=== PATIENT | female | born 1940 | race Caucasian/White ===

== ENCOUNTER 2021-12-21 19:35 | Inpatient (IN) | payer MEDICARE, SELFPAY ==
[2021-12-21 19:45] VITALS: BP 157/56; PULSE 86; RESP 18; TEMP 37.1; O2SAT 94
--- NOTE | 2021-12-21 19:50 | PC.NURSE ---
Notified PCP that pt had arrived to floor and no current orders on pt at this time. PCP to enter orders.
[2021-12-21 20:14] VITALS: BMI 23.6
--- NOTE | 2021-12-21 20:25 | PC.NURSE ---
Covid swab obtained and sent to lab, protocol order entered.
[2021-12-21 20:49] LABS: Influenza A, PCR Not Detected (NotDetected); Influenza B, PCR Not Detected (NotDetected)
[2021-12-21 21:11] LABS: Coronavirus 19, PCR Detected (NotDetected)
[2021-12-21 22:00] VITALS: O2SAT 88
[2021-12-21 22:10] VITALS: O2SAT 93
[2021-12-21 23:32] VITALS: O2SAT 94
--- NOTE | 2021-12-21 23:37 | PC.NURSE ---
Notified PCP that was on floor and no orders have been entered at this time. . PCP to enter orders.
[2021-12-21 23:53] VITALS: BP 137/61; PULSE 62; RESP 16; TEMP 36.6; O2SAT 96
[2021-12-22] VITALS: PULSE 60
--- NOTE | 2021-12-22 00:26 | CA_ITS ---
APPROVED REPORT EXAM: Comprehensive 2D, Doppler, and color-flow Echocardiogram [employer]: Francesca Aparicio CRT Ht: 4 ft 11 in Wt: 117lbs BSA: 1.47 BP: 110/70 mmHg Indications: Covid +, Chest Pain, Non STEMI, Hyperlipidemia, Hypertension/HDD 2D Dimensions LVOT 1.77 cm (M/F) 1.5-2.5 LA Volume 30.00 mL LA Volume Index 20.40 mL/m2 (M/F) 16-34 M-Mode Dimensions RVDd 3.13 cm (0.9-2.6) LA Diam 3.92 cm (1.9-4.0) LVDd 4.25 cm (3.5-5.7) Ao Diam 3.35 cm (2.0-3.7) LVDs 2.53 cm (3.5-5.7) IVSd 1.08 cm (0.6-1.1) PWd 0.63 cm (0.6-1.1) EF (Teich) 71.50% FS 40.50% EDV (Teich) 80.80 mL TAPSE 1.72 (<1.7) ESV (Teich) 23.00 mL LV Diastology MED E' 7.50 (< 7 cm/sec) MED A' 8.40 cm/s LAT E' 11.40 (<10 cm/sec) LAT A' 12.60 cm/s Aortic Valve AO Peak GR. 7.60 mmHg Pulmonary Valve PV Peak Velocity 122.00 (50-150 cm/s) Tricuspid Valve TR P. Velocity 366.00 cm/s RAP Estimate 10.00 mmHg RVSP 63.40 mmHg Left Ventricle Left atrium is mildly enlarged, left ventricle is normal size, estimated ejection fraction 55% with no regional wall motion abnormality, diastolic parameters are inconclusive. Right Ventricle Right atrium and right ventricle are mildly enlarged with normal contractility. Aortic Valve Aortic valve is minimally thickened and fibrosed there is no aortic stenosis or aortic insufficiency. Mitral Valve Mitral valve leaflets are minimally thickened, there is mild mitral regurgitation. Tricuspid Valve Tricuspid valve leaflets are minimally thickened, there is moderate tricuspid regurgitation, calculated right ventricular systolic pressure is 55 mmHg. Pulmonic Valve Pulmonic valve is poorly visualized. Great Vessels Aortic root is normal size. Inferior vena cava is poorly visualized. Pericardium No significant pericardial effusion noted. Conclusion 1. Biatrial enlargement, normal left ventricular size, estimated ejection fraction 55% with no regional wall motion abnormality, diastolic parameters are inconclusive. 2. Mildly enlarged right ventricle with normal contractility. 3. Mild mitral and moderate tricuspid regurgitation, calculated right ventricular systolic pressure is 55 mmHg. 4. No significant pericardial effusion noted. 5. Inferior vena cava is poorly visualized. Electronically signed by : Guanakito Pulliam MD 12/22/2021 10:11:20
[2021-12-22 03:35] VITALS: BP 132/66; PULSE 73; RESP 16; TEMP 36.5; O2SAT 97
--- NOTE | 2021-12-22 03:59 | PC.NURSE ---
Received in report pt received 60mg Lovenox SQ at 1656 12/21 and 180mg Brilinta PO at 1603 9/ at [facility]. PCP notified of this.
[2021-12-22 04:00] VITALS: PULSE 70
[2021-12-22 05:00] VITALS: BMI 24.2
[2021-12-22 08:00] VITALS: BP 141/67; PULSE 76; PULSE 77; RESP 18; TEMP 36.7; O2SAT 92; O2SAT 95
--- NOTE | 2021-12-22 08:19 | P.CONPHA_ITS ---
[facility] Pharmacy VTE Monitoring Patient Demographics Admission date: 12/21/21 Report Date: 12/22/21 Time: 08:19 Patient Allergies No Known Allergies Allergy (Verified 05/23/20 13:06) Height: 1.5 m Weight: 54.573 kg VTE Risk VTE Score: 2 Prophylaxis VTE Prophylaxis Ordered?: Yes Types of VTE Prophylaxis: TEDS Knee High Location of Applied Device: Bilateral Lower Extremeties
[2021-12-22 08:40] LABS: Basophils % 0.4 % (0.1-2.0); Eosinophils # 0.1 K/mm3 (0.0-0.4); Eosinophils % 1.5 % (0.1-12.0); Hematocrit 39.2 % (37.0-47.0); Hemoglobin 12.6 g/dL (12.2-16.2); Lymphocytes # 0.7 K/mm3 (0.7-4.5); Mean Corpuscular HGB Conc 32.2 g/dL (31.8-35.4); Mean Corpuscular Hemoglobin 29.3 pg (27.0-31.2); Mean Corpuscular Volume 90.9 fl (81-99); Mean Platelet Volume 8.7 fl (7.4-10.4); Monocytes # 0.6 K/mm3 (0.1-1.0); Neutrophils # 5.1 K/mm3 (1.8-7.8); Neutrophils % 78.1 % (37.0-80.0); Platelet Count 202 K/mm3 (142-424); Red Blood Count 4.31 M/mm3 (4.20-5.40); Red Cell Distribution Width 15.1 % (11.5-17.5); White Blood Count 6.5 K/mm3 (4.8-10.8)
--- NOTE | 2021-12-22 08:51 | HMH.PHAINT1 ---
Pharmacy Intervention Comments: MEDICATION RECONCILIATION COMPLETED ON PATIENT USING EXTERNAL FILL HISTORY FROM PHARMACY. -CHRISTINA GOMEZ, ERVIND
[2021-12-22 08:55] LABS: Chloride 105 mmol/L (98-107)
[2021-12-22 08:56] LABS: Sodium 138 mmol/L (136-145)
[2021-12-22 08:58] LABS: Alanine Aminotransferase 11 U/L (12-78); Alkaline Phosphatase 68 U/L (38-126); Aspartate Amino Transferase 15 U/L (14-36); Blood Urea Nitrogen 13 mg/dl (7-17); Carbon Dioxide 23 mmol/L (22.0-30.0); Creatinine Clearance Estimated 39 mL/min (50-200); Estimated Glomerular Filt Rate 96 ml/min (>60); GFR (African American) 116 ML/MIN (>60)
[2021-12-22 08:59] LABS: Albumin Level 3.4 g/dl (3.5-5.0); Albumin/Globulin Ratio 1.1 (1.1-1.8); Calcium 8.3 mg/dl (8.4-10.2); Chol/HDL Ratio 4.4 (1-3.5); Cholesterol 228 mg/dl (140-200); Glucose 80 mg/dl (74-100); HDL Cholesterol 52 mg/dl (40-60); Magnesium 1.9 mg/dl (1.6-2.3); Total Protein,Serum 6.4 g/dl (6.3-8.2); Triglycerides 101 mg/dl (30-150); VLDL Cholesterol 20 mg/dL (0-40)
[2021-12-22 09:10] LABS: Direct LDL Cholesterol 123.11 mg/dL (100-129); Troponin I 0.12 ng/ml (0.00-0.034)
--- NOTE | 2021-12-22 09:24 | PC.NURSE ---
DURING ROUNDS THIS AM PCP AND CARDIOLOGY WERE MADE AWARE OF PT HAVING BILATERAL PE'S UPON ADMISSION.
--- NOTE | 2021-12-22 09:34 | EXP.CARD.CON ---
History of Present Illness History of Present Illness Consult date: 12/22/21 Requesting physician: Shaq Nogueira Consult reason: chest pain and shortness of breath Chief complaint: right sided chest pain, soa, weakness Additional Medical History:: CAD Recent covid infection History of present illness: 81 year old white female was transfered to [facility] for cardiology eval for Bilateral PEs, elevated trop, and covid. Patient reports went to [facility] last night for evaluation of ongoing right sided stabbing like chest pain, progressive and worsening soa, and weakness with standing. patient reports symptoms started 4 days ago and have continued. soa has worsened and yesterday felt weak with standing. Patient reports with dx with covid 2 weeks ago and has tested positive since then. Upon presentation to ER EKG showed sr with premature supraventricular complexes rate of 76. Vitals were and has remained stable. High sensitivity trop was elevated at 344.6, d dimer was elevated at 5131. Chest xray was negative, cta was positive for bilateral pulmonary emboli, more evident on right than left with no evidence of right heart strain. Patient was given aspirin, brilinta, and lovenox. Currently patient is resting comfortably, denies chest pain, reports soa and weakness with activity. [facility] Medical History (Updated 12/22/21 @ 09:43 by Jojo Clifford APRN) History of chest pain History of heart attack History of left heart catheterization (LHC) Hyperlipidemia Hypertension Surgical History (Updated 12/21/21 @ 21:48 by Jess Strauss RN) History of colonoscopy History of hysterectomy History of right heart catheterization (RHC) Social History (Updated 12/21/21 @ 21:49 by Jess Strauss RN) Smoking Status: Never smoker alcohol intake: never current occupational status: retired Travel in the last 8 weeks: Inside the [place] Review of Systems Review of Systems Review of systems:: pertinent systems reviewed and negative unless documented below Constitutional Constitutional: Reports weakness *Cardiovascular Cardiovascular: Reports chest pain and Reports dyspnea Comments: right sided stabbing pain *Respiratory Respiratory: Reports dyspnea *Neurologic Neurologic: Reports weakness Exam Data for Last 24 hours Vital signs and Labs for Last 24 Hours: Temp Pulse Resp BP Pulse Ox 98.1 F 77 18 141/67 H 92 L 12/22/21 08:00 12/22/21 08:00 12/22/21 08:00 12/22/21 08:00 12/22/21 08:00 Laboratory Results - last 24 hr 12/21/21 20:40: SARS-CoV-2 (PCR) Detected A, Influenza A Untype (PCR) Not detected, Influenza Type B (PCR) Not detected 12/22/21 08:25: Troponin I 0.12 H 12/22/21 08:25: WBC 6.5, RBC 4.31, Hgb 12.6, Hct 39.2, MCV 90.9, MCH 29.3, MCHC 32.2, RDW 15.1, Plt Count 202, MPV 8.7, Neut % (Auto) 78.1, Lymph % (Auto) 11.0, [place] % (Auto) 9.0, Eos % (Auto) 1.5, Baso % (Auto) 0.4, Neut # (Auto) 5.1, Lymph # (Auto) 0.7, [place] # (Auto) 0.6, Eos # (Auto) 0.1, Baso # (Auto) 0.0 12/22/21 08:25: Sodium 138, Potassium 4.0, Chloride 105, Carbon Dioxide 23, Anion Gap 14.0, BUN 13, Creatinine 0.60, Estimated Creat Clear 39, Estimated GFR 96, Est GFR ( Amer) 116, Glucose 80, Calcium 8.3 L, Magnesium 1.9, Total Bilirubin 1.0, AST 15, ALT 11 L, Alkaline Phosphatase 68, Total Protein 6.4, Albumin 3.4 L, Globulin 3.0, Albumin/Globulin Ratio 1.1, Triglycerides 101, Cholesterol 228 H, LDL Cholesterol Direct 123.11, VLDL Cholesterol 20, HDL Cholesterol 52, Cholesterol/HDL Ratio 4.4 H I & O for Last 24 hours: Intake & Output 12/19/21 12/20/21 12/21/21 12/22/21 23:59 23:59 23:59 23:59 Output Total 300 / 300 0 / 0 Balance -300 / -300 0 / 0 Weight 117 lb 3 oz 120 lb 5 oz Constitutional Constitutional: no acute distress *Routine Respiratory Exam Respiratory: Present CTA bilaterally and symmetric chest movement *Routine Cardiovascular Exam Cardiovascular: Present RRR, Normal S1 and Normal S2 *Rout
--- NOTE | 2021-12-22 10:12 | PC.NURSE ---
spoke with renny corcoran about xarelto. she stated to go ahead and give the first dose now.
[2021-12-22 12:00] VITALS: BP 109/53; PULSE 64; PULSE 67; RESP 16; TEMP 36.7; O2SAT 94
--- NOTE | 2021-12-22 12:58 | EXP.HPDC ---
General Admission date:: 12/21/21 Discharge date: 12/22/21 *Admission Date: 12/21/21 *Chief complaint: Chest Pain *History of present illness: 81 year old white female was transfered to [facility] for cardiology eval for Bilateral PEs, elevated trop, and covid. Patient reports went to [facility] last night for evaluation of ongoing right sided stabbing like chest pain, progressive and worsening soa, and weakness with standing. patient reports symptoms started 4 days ago and have continued. soa has worsened and yesterday felt weak with standing. Patient reports with dx with covid 2 weeks ago and has tested positive since then. Upon presentation to ER EKG showed sr with premature supraventricular complexes rate of 76. Vitals were and has remained stable. High sensitivity trop was elevated at 344.6, d dimer was elevated at 5131. Chest xray was negative, cta was positive for bilateral pulmonary emboli, more evident on right than left with no evidence of right heart strain. Patient was given aspirin, brilinta, and lovenox. Currently patient is resting comfortably, denies chest pain, reports soa and weakness with activity. [facility] Medical History (Updated 12/22/21 @ 09:43 by Jojo Clifford APRN) History of chest pain History of heart attack History of left heart catheterization (LHC) Hyperlipidemia Hypertension Surgical History (Updated 12/21/21 @ 21:48 by Jess Strasus RN) History of colonoscopy History of hysterectomy History of right heart catheterization (RHC) Social History (Updated 12/21/21 @ 21:49 by Jess Strauss RN) Smoking Status: Never smoker alcohol intake: never current occupational status: retired Travel in the last 8 weeks: Inside the [place] Review of Systems Constitutional Constitutional: Denies excessive sweating and Reports weakness Eyes Eyes: Reports system reviewed and no additional complaints, except as documented, Denies blurry vision and Denies diplopia ENT Ears, Nose, Mouth, and Throat: Reports system reviewed and no additional complaints, except as documented, Denies disequilibrium, Denies dizziness, Denies dysphagia and Denies lip swelling *Cardiovascular Cardiovascular: Reports chest pain at rest and Reports dyspnea *Respiratory Respiratory: Reports dyspnea *Gastrointestinal Gastrointestinal: Reports system reviewed and no additional complaints, except as documented, Denies change in bowel habits and Denies dysphagia *Genitourinary Genitourinary: Reports system reviewed and no additional complaints, except as documented *Musculoskeletal Musculoskeletal: Reports system reviewed and no additional complaints, except as documented *Neurologic Neurologic: Denies disequilibrium, Denies dizziness and Reports weakness Psychiatric Psychiatric: Reports system reviewed and no additional complaints, except as documented and Denies anxiety Endocrine Endocrine: Reports system reviewed and no additional complaints, except as documented, Denies cold intolerance and Denies excessive sweating Hematologic/Lymphatic Hematologic/Lymphatic: Reports system reviewed and no additional complaints, except as documented and Denies easy bleeding Allergic/Immunologic Allergic/Immunologic: Reports system reviewed and no additional complaints, except as documented and Denies lip swelling Exam Data for Last 24 hours Vital signs and Labs for Last 24 Hours: Temp Pulse Resp BP Pulse Ox 98.1 F 77 18 141/67 H 95 12/22/21 08:00 12/22/21 08:00 12/22/21 08:00 12/22/21 08:00 12/22/21 08:00 Laboratory Results - last 24 hr 12/21/21 20:40: SARS-CoV-2 (PCR) Detected A, Influenza A Untype (PCR) Not detected, Influenza Type B (PCR) Not detected 12/22/21 08:25: Troponin I 0.12 H 12/22/21 08:25: WBC 6.5, RBC 4.31, Hgb 12.6, Hct 39.2, MCV 90.9, MCH 29.3, MCHC 32.2, RDW 15.1, Plt Count 202, MPV 8.7, Neut % (Auto) 78.1, Lymph % (Auto) 11.0, [place] % (Auto) 9.0, Eos % (Auto) 1.5, Baso % (Auto) 0.4, Neut
--- NOTE | 2021-12-22 13:58 | P.CONPHA_ITS ---
Pharmacy Intervention Comments: DISCHARGE MEDICATION COUNSELING PROVIDED. DISCUSSED THE XARELTO DOSING EXTENSIVELY. DISCUSSED TO TAKE THE 15 MG TABLET PRESCRIPTION TWICE DAILY FOR 21 DAYS, THEN DROP DOWN TO THE 20 MG PRESCRIPTION ONCE DAILY THEREAFTER. RECOMMENDED TAKING WITH FOOD, SPECIFICALLY THE EVENING MEAL. WATCH FOR BRUISING, BLEEDING AND IF YOU BUMP HEAD GO TO THE ER TO RULE OUT A HEAD BLEED. PATIENT'S DAUGHTER ASKED IF THEY WERE BEING SENT HOME WITH THE PRESCRIPTION OR IF IT WAS SENT TO A PHARMACY AND I ADVISED HER IT WAS SENT TO THE [facility] IN [place]. PATIENT AND DAUGHTER VERBALIZED NO ADDITIONAL QUESTIONS AT THIS TIME.
--- NOTE | 2021-12-22 14:09 | PC.NURSE ---
V/O TO GIVE PT SECOND DOSE OF XARELTO FROM Pato GOMEZ IN PHARMACY ORDERED BY .
--- NOTE | 2021-12-25 13:13 | CARE MANAGER ---
Contacted patient related to hospital discharge. She states she was able to get her Xarelto without any issues. She denies questions or concerns. She is aware of follow up appointments. KAREN Villatoro
== END 2021-12-22 14:20 | disposition home or self-care (01) | DRG 175 ==
PROVIDERS: Admitting Provider Emergency Medicine; PCP Family Medicine; Visit Provider Emergency Medicine
DX: I26.99 Other pulmonary embolism without acute cor pulmonale (principal); I25.10 Atherosclerotic heart disease of native coronary artery without angina pectoris; I10 Essential (primary) hypertension; Z79.899 Other long term (current) drug therapy; E11.9 Type 2 diabetes mellitus without complications; Z79.4 Long term (current) use of insulin; E78.5 Hyperlipidemia, unspecified; U07.1 COVID-19; I25.2 Old myocardial infarction
CPT/HCPCS: G0379; 80053; 80061; 83735; 84484; 85025; 93306; C9803; G0378; U0003; U0005